=== PATIENT | female | born 1980 | race Two or more races ===

== ENCOUNTER 2022-05-11 21:20 | Emergency (ER) | payer SELFPAY ==
[~2022-05-11] VITALS: Ht 162.6 cm; Wt 59.0 kg
[2022-05-11 21:46] VITALS: BP 120/85
[2022-05-11] MEDS ORDERED: ACETAMINOPHEN 325MG TABLET PO ONE (23:30)
== END 2022-05-12 00:32 | disposition home or self-care (01) ==
LOC: ER 21:20
DX: S50.11XA Contusion of right forearm, initial encounter (principal); M25.561 Pain in right knee; W11.XXXA Fall on and from ladder, initial encounter; Y93.89 Activity, other specified; Y92.89 Other specified places as the place of occurrence of the external cause; Y99.8 Other external cause status
CPT/HCPCS: 73090; 73562; 99284